=== PATIENT | male | born 1950 | race American Indian/Alaskan Native ===

== ENCOUNTER 2018-05-17 07:23 | Day surgery (SDC) | payer MEDICARE, BC ==
[2018-05-16 09:21] VITALS: BMI 25.4
[2018-05-17] MEDS ORDERED: Lactated Ringer's 1,000 ML IV ONE (08:45)
[2018-05-17] MEDS ORDERED: Triamcinolone Acetonide 40 mg/mL Inj IJ ONE ×2 (09:26→11:00)
[2018-05-17] MEDS ORDERED: Lidocaine 1% 5ml Abboject IV ONE (10:09)
[2018-05-17] MEDS ORDERED: Propofol 10 mg/ml Inj (20 ML) ONE (10:09)
[2018-05-17] MEDS ORDERED: Midazolam 2 MG/2 ML VIAL ONE (10:09)
[2018-05-17] MEDS ORDERED: Lidocaine 2% Jelly (5 ml) TOP ONE (10:10)
[2018-05-17] MEDS ORDERED: ceFAZolin IV 1 gm in Dextrose 2 GM/100 ML BAG IVPB ONE (10:43)
[2018-05-17] MEDS ORDERED: Gentamicin 80 mg/2mL Inj. ONE (10:44)
[2018-05-17] MEDS ORDERED: Gentamicin 80 mg/2mL Inj. IVPB ONE (10:45)
[2018-05-17] MEDS ORDERED: Iohexol 240 (50 ml) UR ONE (10:50)
[2018-05-17] MEDS ORDERED: HYDROmorphone 1 mg/ml ISec IVP PRN (11:16)
[2018-05-17] MEDS ORDERED: Lactated Ringer's 1,000 ML IV SCH (11:30)
[2018-05-17 12:50] VITALS: O2SAT 97
[2018-05-17 13:20] VITALS: RESP 18
[2018-05-17 13:56] VITALS: BP 132/76; PULSE 68; TEMP 97.6
--- NOTE | 2018-05-18 08:36 | OP ---
Copied To: Marcelo Hicks M.D. Attending MD: Marcelo Hicks M.D. PROCEDURE DATE: 05/17/2018 The patient is a 67-year-old male who has had multiple urethral surgeries by other urologists and presents with difficulty voiding, incomplete emptying, and painful urination. He is brought today for diagnostic treatment of his problem. PREOPERATIVE DIAGNOSES: Lower urinary tract symptoms, possible urethral stricture, possible bladder neck contracture. 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 PROCEDURES: Retrograde urethrogram, cystoscopy, transurethral electrovaporization of the prostatic fossa, and Kenalog injection into the bladder neck. ESTIMATED BLOOD LOSS: Minimal. ANESTHESIA: General. SURGEON: Marcelo Hicks M.D. OPERATING DETAILS: The patient was brought to the operating room, placed in supine position. General anesthesia anesthesia was administered with identification in a modified decubitus position with the left hip elevated on a gel bump. We prepped and draped the patient in a usual sterile fashion. We then called a time-out, verifying patient name, procedure, antibiotics, and allergies. We proceeded to place a Salazar catheter in the fossa navicularis; 2 mL of sterile water was injected into the balloon to secure the catheter in position. We then performed a retrograde urethrogram which demonstrated smooth urethra with filling of the bladder and no apparent strictures on the retrograde. I then performed the cystoscopy which identified a small membranous urethral stricture which was easily traversed with 19-Vietnamese cystoscope and an additional stricture in the bulbar urethra again which was easily traversed with a 19-Vietnamese cystoscope. I was then able to gain access to the prostatic urethra which did have some adenoma growing at the bladder neck and some white avascular scar. At this point, I made the decision that the prostatic fossa is likely contributing to his symptoms, and therefore, performed an electrovaporization of that area of the prostatic urethra which appeared to be obstructing. I was able to unobstruct the prostatic urethra completely, and then given his stricture formation, I injected 400 mg of Kenalog using a needle to the area that was ablated. At the end of this, the bladder empty. I surveyed the bed and no bleeding was identified. I was satisfied with it. Case was successful. I placed a 20-Vietnamese Beverly tip Salazar catheter per urethra into the bladder. I inflated 10 mL of sterile water into the balloon, secured the Salazar to the patient's leg. Awakened the patient from anesthesia and transferred to recovery room in good, stable condition. The patient will go home with Salazar to leg bag and follow up in the office for voiding trial in several days. Marcelo Hicks M.D.
--- NOTE | 2018-05-20 11:47 | RAD ---
Date of service: 05/17/2018 PROCEDURE: Intraoperative Fluoroscopy. HISTORY: CYSTO: URETHROGRAM FINDINGS: Fluoroscopic assistance was provided. Fluoroscopy time = 23.0 seconds Please refer to the operative report for additional details.
== END 2018-05-17 14:00 | disposition home or self-care (01) ==
LOC: H.OPSURG 07:23
PROVIDERS: ATTEND Urology
DX: N35.9 Urethral stricture, unspecified (principal); D30.3 Benign neoplasm of bladder; N40.1 Benign prostatic hyperplasia with lower urinary tract symptoms; R33.8 Other retention of urine; R39.14 Feeling of incomplete bladder emptying; R30.0 Dysuria
CPT/HCPCS: 51715; 52648; A4358; J0690; J1580; J2250; J2704; J2765; J3010; J3301; J7120; Q9966